=== PATIENT | male | born 1970 | race African-American/Black ===

== ENCOUNTER 2016-07-13 16:50 | Inpatient (IN) ==
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
[2016-07-13] MEDS ORDERED: KETOROLAC 60 MG/2 ML VIAL IM ONE (17:54)
[2016-07-13] MEDS ORDERED: KETOROLAC 30 MG/1 ML VIAL IM STA (17:59)
[2016-07-13] MEDS ORDERED: HYDROmorphone 2 MG/1 ML VIAL IM STA (18:04)
[2016-07-13] MEDS ORDERED: PROMETHAZINE 25 MG/1 ML VIAL IM STA (18:05)
[2016-07-13] MEDS ORDERED: PROMETHAZINE 25 MG/1 ML VIAL ONE (18:06)
[2016-07-13] MEDS ORDERED: HYDROmorphone 2 MG/1 ML VIAL ONE (18:06)
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
[2016-07-13] MEDS ORDERED: MAGNESIUM HYDROXIDE SUSP 30 ML UDCUP PO PRN (18:27)
[2016-07-13 18:42] LABS: Basophils % 0.1 % (0.0-0.8); Hematocrit 37.5 VOL% (42.0-52.0); Hemoglobin 12.3 GM/DL (14.0-18.0); Immature Granulocytes % 0.2 %; Immature Granulocytes Absolute 0.02 #; Lymphocytes # 1.2 10*3/uL (1.4-4.0); Lymphocytes % 9.3 % (21.2-54.2); Mean Corpuscular HGB Conc 32.8 GM/DL (32-36); Mean Corpuscular Hemoglobin 27 PG (27-34); Mean Corpuscular Volume 81.7 FL (87-102); Mean Platelet Volume 10.9 FL (9.6-12.0); Monocytes # 0.6 10*3/uL (0.11-0.8); Monocytes % 4.7 % (1.7-12.7); Neutrophils # 10.8 10*3/uL (1.4-7.4); Neutrophils % 85.7 % (38.7-73.9); Platelet Count 213 10*3/uL (130-400); Red Blood Count 4.59 10*6/uL (3.8-5.5); Red Cell Distribution Width 16.5 % (9.3-17.3); White Blood Count 12.5 10*3/uL (4.5-13.71)
--- NOTE | 2016-07-13 18:55 | EKG Report ---
Stationary ECG Study [facility] Test Date: 07/13/2016 6:53:11 PM Pat Name: ABNER VEGA Department: Room: 320 Gender: M Food Service Attendant: : 1970 Requested by: Darío Thorpe Order Number: [id number] Reading MD: MAXINE DE LA CRUZ Intervals [place] Rate: 59 P: 39 WA: 195 QRS: 1 QRSD: 113 T: 53 QT: 402 QTc: 400 Interpretive Statements SINUS RHYTHM VOLTAGE CRITERIA FOR LVH Electronically Signed On 07-15-16 07:45:39 [employer] by MAXINE DE LA CRUZ [email or web address]
[2016-07-13 19:03] LABS: Alanine Aminotransferase 21 U/L (16-61); Albumin 3.8 G/DL (3.4-5.0); Alkaline Phosphatase 69 U/L (45-117); Aspartate Amino Transferase 19 U/L (0-37); Bilirubin,Total < 0.39 MG/DL (0.2-1.0); Blood Urea Nitrogen 15 MG/DL (7-18); Calcium 8.3 MG/DL (8.5-10.1); Glucose 131 MG/DL (74-106); Osmolality,Calculated 288.8 MOS/KG (273-304); Potassium 3.6 MMOL/L (3.5-5.1); Sodium 144 MMOL/L (136-145); Total Protein 7.4 G/DL (6.4-8.3)
--- NOTE | 2016-07-13 19:37 | XRay Report ---
Exam: XR chest 1V portable Date: 07/13/2016 6:26 PM Indication: Respiratory preoperative evaluation Comparison: 12/02/2012 Technical:AP portable Findings: Mild cardiomegaly present. Mild interstitial thickening without defined infiltrate or effusion. Mediastinal and bony structures are intact Impression: 1. Cardiomegaly without decompensation. PROCEDURE INTERPRETED AT [facility] DEPARTMENT OF RADIOLOGY Final Report Signed by: Dr. Norman Cummings
--- NOTE | 2016-07-13 19:46 | CT Report ---
Exam: CT knee RT wo con Date: 07/13/2016 6:26 PM Comparison: None Indication: Tibial plateau fracture Total DLP: 455.1 mGy*cm Technical: Axial sagittal coronal imaging obtained without contrast. Dose reduction was performed with decreasing kv and mA and automated exposure Findings: Examination reveals a fracture through the intercondylar eminence extending laterally with some comminution and a lateral Segond fracture present. Joint effusion hemarthrosis is present. The exam reveals fracture of the fibula with posterior positioning distal fracture fragment also noted. Small area of loose body along the intercondylar remnant within the joint space. The largest butterfly fragment of the lateral tibial plateau is displaced posteriorly and measures 6.5 cm in approximately 4.2 cm. Distal femur is intact. The medial tibia is unremarkable. Patella is intact. Impression: 1. Comminuted spiral lateral tibial plateau fracture extending to the intercondylar eminence with lateral Segond and fracture also present the. 2. Nondisplaced fracture of the fibula present with transverse fracture component. 3. Large joint effusion hemarthrosis. PROCEDURE INTERPRETED AT [facility] DEPARTMENT OF RADIOLOGY Final Report Signed by: Dr. Norman Cummings
[2016-07-13] MEDS ORDERED: ENOXAPARIN 40 MG/0.4 ML SYRINGE SUBCUT SCH (21:00)
[2016-07-14] MEDS: HYDROmorphone 2 MG/1 ML VIAL IV PRN ×6 (03:10→23:24)
[2016-07-14] MEDS ORDERED: diphenhydrAMINE CAP 25 MG CAPSULE PO PRN (08:18)
[2016-07-14] MEDS ORDERED: TEMAZEPAM 15 MG CAPSULE PO PRN (08:18)
--- NOTE | 2016-07-14 09:07 | Orthopedic History & Physical ---
History of Present Illness Chief complaint: right tibial plateau fracture History of present illness: Mr. Gil is a 46 year old male See dictated reports Home Medications Medication Instructions Recorded Confirmed Type No Known Home Medications [No 07/13/16 07/13/16 History Known Home Medications] Allergies Allergy/AdvReac Type Severity Reaction Status Date / Time Penicillins Allergy Unknown/Unable Verified 07/13/16 17:02 to obtain Medical,Surgical,& Family Hx - Social History Smoking Status: Never smoker Frequency of Alcohol Use: None Type of Drug Use: None Exam - Constitutional Vitals: Period Temp Pulse Resp BP Sys/Cadroza Pulse Ox Last 24 Hr 98.2 F-99.8 F 60-63 12-20 162-180/87-100 96-100 Results - Labs CBC & BMP: 07/13/16 18:27 07/13/16 18:27
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
[2016-07-14] MEDS ORDERED: hydrALAZINE 20 MG/1 ML VIAL IV PRN (13:43)
[2016-07-14] MEDS ORDERED: LABETALOL 20 MG/4 ML SYRINGE IV PRN (13:47)
[2016-07-14] MEDS: amLODIPine 10 MG TABLET PO SCH (14:28)
[2016-07-15] MEDS: HYDROmorphone 2 MG/1 ML VIAL IV PRN ×5 (04:06→09:40)
[2016-07-15] MEDS ORDERED: DIAZEPAM 5 MG TABLET PO ONE (06:00)
[2016-07-15] MEDS ORDERED: FAMOTIDINE 20 MG/2 ML VIAL IV ONE (06:00)
[2016-07-15] MEDS: LACTATED RINGERS 1,000 ML IV SCH ×2 (06:22→08:46)
[2016-07-15] MEDS: amLODIPine 10 MG TABLET PO SCH ×2 (06:23→11:11)
[2016-07-15] MEDS ORDERED: GENTAMICIN 80 MG/2 ML VIAL ONE (06:58)
[2016-07-15] MEDS ORDERED: CLINDAMYCIN INJ 900 MG in PREMIX 1 EACH IV ONE (07:30)
[2016-07-15] MEDS ORDERED: PROPOFOL 200 MG/20 ML VIAL IV ONE (09:21)
[2016-07-15] MEDS ORDERED: ONDANSETRON 4 MG/2 ML VIAL ONE ×2 (09:21→09:22)
[2016-07-15] MEDS ORDERED: SEVOFLURANE 1 UNIT/15 MINUTE INH ONE (09:21)
[2016-07-15] MEDS ORDERED: GLYCOPYRROLATE 0.4 MG/2 ML VIAL ONE (09:21)
[2016-07-15] MEDS ORDERED: MIDAZOLAM 2 MG/2 ML VIAL ONE (09:21)
[2016-07-15] MEDS ORDERED: fentaNYL 100 MCG/2 ML VIAL ONE (09:21)
[2016-07-15] MEDS ORDERED: LACTATED RINGERS 1,000 ML IV ONE (09:22)
[2016-07-15] MEDS ORDERED: ROCURONIUM 100 MG/10 ML VIAL IV ONE (09:22)
[2016-07-15] MEDS ORDERED: ACETAMINOPHEN 1,000 MG/100 ML VIAL IV ONE (09:22)
[2016-07-15] MEDS ORDERED: NEOSTIGMINE 10 MG/10 ML VIAL ONE (09:22)
[2016-07-15] MEDS ORDERED: HYDROmorphone 2 MG/1 ML VIAL ONE (09:22)
--- NOTE | 2016-07-15 09:24 | Operative Note ---
Date of procedure: 07/15/16 (see dictated reports) Surgeon / Physician: Jose Prince Jr. Results - Labs CBC & BMP: 07/13/16 18:27 07/13/16 18:27 Discharge Plan - Discharge Medications No Action No Known Home Medications [No Known Home Medications] - Follow Up or Referral - Forms/Instructions
[2016-07-15] MEDS ORDERED: ONDANSETRON 4 MG/2 ML VIAL IV PRN (09:36)
[2016-07-15] MEDS ORDERED: BISACODYL 10 MG SUPP RECTAL PRN (09:54)
[2016-07-15] MEDS ORDERED: LACTULOSE 20 GM/30 ML UDCUP PO PRN (09:54)
[2016-07-15] MEDS ORDERED: HYDROmorphone PCA 30 MG/30 ML SYRINGE IV SCH (10:00)
[2016-07-15] MEDS ORDERED: LABETALOL 20 MG/4 ML SYRINGE IV ONE (10:05)
--- NOTE | 2016-07-15 10:14 | Anesthesia ---
Anesthesia Post OP - Post Ansesthetic Evaluation Patient seen in post op: Yes Resp: within normal limits CV: within normal limits Mental: within normal limits Temp: within normal limits Tkal-[id number]: within normal limits Nausea and Vomiting: within normal limits Pain: within normal limits
[2016-07-15] MEDS ORDERED: HYDROmorphone PCA 30 MG/30 ML SYRINGE IV ONE (10:19)
[2016-07-15] MEDS: PROMETHAZINE 25 MG/1 ML VIAL IM PRN (11:20)
--- NOTE | 2016-07-15 11:27 | Hospitalist Progress Note ---
Assessment and Plan (1) Fracture, fibula, proximal Status: Acute Assessment and plan: per primary team, s/p Sx Current Visit: Yes (2) Tibial plateau fracture Status: Acute Assessment and plan: per primary team Current Visit: Yes (3) Uncontrolled hypertension Status: Acute Assessment and plan: improving but still elevated. Will add chlorthalidone to amlodipine and c/w prn anti-HTN meds IV. optimal results in process. and pt counseled on nonadherence.Also pain on occasions might add to random elevation of BP so pain control will also help Current Visit: Yes (4) Microcytic anemia Status: Acute Assessment and plan: Hb 12.1. Current Visit: Yes Hospitalist: Subjective Interval history: Patient come back from surgery earlier this morning. Complaining of some pain and right lower extremity improving with pain medication. Patient denies chest pain or SOB or nausea or vomiting or palpitation or blurred vision or numbness. Exam - Constitutional Vitals: Period Temp Pulse Resp BP Sys/Cardoza Pulse Ox Last 24 Hr 97.4 F-98.9 F 58-92 12-23 158-194/90-118 96-100 Exam: General: A and O 3, NAD Neck: No JVD, supple Heart: S1-S2 present, RRR Lungs: CTA B, no wheezing Abdomen soft nontender Skin dry and warm Ext: HEENT: PERRL Results - Labs CBC & BMP: 07/13/16 18:27 07/13/16 18:27
[2016-07-15] MEDS: CHLORTHALIDONE 25 MG TABLET PO SCH (12:27)
[2016-07-15 12:33] LABS: Basophils % 0.2 % (0.0-0.8); Eosinophils % 0.1 % (0.00-10.9); Hematocrit 36.6 VOL% (42.0-52.0); Immature Granulocytes % 0.5 %; Immature Granulocytes Absolute 0.07 #; Lymphocytes # 1.6 10*3/uL (1.4-4.0); Lymphocytes % 12.4 % (21.2-54.2); Mean Corpuscular HGB Conc 32.8 GM/DL (32-36); Mean Corpuscular Hemoglobin 26 PG (27-34); Mean Corpuscular Volume 80.4 FL (87-102); Mean Platelet Volume 10.8 FL (9.6-12.0); Monocytes # 0.8 10*3/uL (0.11-0.8); Monocytes % 6.5 % (1.7-12.7); Neutrophils # 10.3 10*3/uL (1.4-7.4); Neutrophils % 80.3 % (38.7-73.9); Platelet Count 213 10*3/uL (130-400); Red Blood Count 4.55 10*6/uL (3.8-5.5); Red Cell Distribution Width 16.3 % (9.3-17.3); White Blood Count 12.8 10*3/uL (4.5-13.71)
[2016-07-15 12:58] LABS: Band Neutrophils 3 % (0-10); Calcium 8.7 MG/DL (8.5-10.1); Hypochromasia 1+; Lymphocytes 11 % (20-55); Osmolality,Calculated 276.7 MOS/KG (273-304); Ovalocytes Slight; Platelet Estimate Adequate; Potassium 3.2 MMOL/L (3.5-5.1); Segmented Neutrophils 80 % (50-85); Total Cells Counted 100
--- NOTE | 2016-07-15 13:19 | XRay Report ---
XR knee 3V RT Indication: ORIF right tibial plateau fracture. Fluoroscopy right knee: Fluoroscopy time 29 seconds. Plate and screw fixation of a 2 plateau fracture has been performed. Alignment is anatomic. Close reduction of fibular fracture noted as well, also in anatomic alignment. Tibial plateau shows no significant depressed fracture fragments. Impression: Anatomic alignment following ORIF tibial plateau fracture. PROCEDURE INTERPRETED AT [facility] DEPARTMENT OF RADIOLOGY Final Report Signed by: Awais Horne M.D.
[2016-07-15] MEDS: ONDANSETRON 4 MG/2 ML VIAL IV PRN (15:59)
[2016-07-15] MEDS: CLINDAMYCIN INJ 900 MG in PREMIX 1 EACH IV SCH ×2 (16:11→23:40)
--- NOTE | 2016-07-15 17:03 | Urology Consultation ---
History of Present Illness - Data of Consult Consult date: 07/15/16 - Consult Narrative History of present illness: Mr. Gil is a 46 year old male This 46-year-old black male is seen in consultation with Dr. Prince because of urinary symptoms that started after surgery this morning. The patient complains of frequency and voiding small amounts. He denies any difficulty voiding difficulty voiding prior to admission and no past history of any serious urological problems. On physical examination he has tenderness and questionable fullness in the suprapubic area and I suspect that this represents urinary retention. I am going get a bladder scan and if it shows an elevated residual urine put a Fontenot catheter and start him on Flomax CC: Jose Prince Jr., MD - Home Medications and Allergies Home Medications: Home Medications Medication Instructions Recorded Confirmed Type No Known Home Medications [No 07/13/16 07/13/16 History Known Home Medications] Allergies/Adverse Reactions: Allergies Allergy/AdvReac Type Severity Reaction Status Date / Time Penicillins Allergy Unknown/Unable Verified 07/13/16 17:02 to obtain Exam - Constitutional Vitals: Period Temp Pulse Resp BP Sys/Cardoza Pulse Ox Last 24 Hr 97.4 F-98.9 F 50-98 12- 148-194/75-118 96-100 Results - Labs CBC & BMP: 07/15/16 11:55 07/15/16 11:55
[2016-07-15 17:48] LABS: Apearance,Urine CLEAR (Clear); Bilirubin,Urine Negative (Negative); Blood, Urine Large mg/dL (Negative); Glucose,Urine (UA) 50 mg/dL (Negative); Ketones,Urine Negative (Negative); Nitrite,Urine Negative (Negative); Protein,Urine Negative; RBC,Urine 9 /HPF (0-4); Squamous Epithelial Cell,Urine Occasional /HPF (0-10); Urine Color Straw (Yellow); Urine Specific Gravity 1.005 (1.001-1.035); Urine Urobilinogen < 2.0 EU/DL (0.2-1.0); WBC,Urine 1 /HPF (0-6)
[2016-07-15] MEDS: TAMSULOSIN 0.4 MG CAPSULE PO SCH (22:29)
--- NOTE | 2016-07-16 07:47 | Urology Progress Note ---
Urology - PN: Subj Interval history: The patient was in urinary retention postop. He had 650 mL residual when catheterized. He is now on Flomax. We'll give him a trial of voiding today Exam - Constitutional Vitals: Period Temp Pulse Resp BP Sys/Cardoza Pulse Ox Last 24 Hr 97.4 F-98.9 F 50-98 12- 140-194/75-118 96-100 Results - Labs CBC & BMP: 07/15/16 11:55 07/15/16 11:55
[2016-07-16] MEDS: CHLORTHALIDONE 25 MG TABLET PO SCH (09:20)
[2016-07-16] MEDS: amLODIPine 10 MG TABLET PO SCH (09:20)
[2016-07-16] MEDS: TAMSULOSIN 0.4 MG CAPSULE PO SCH ×2 (09:20→20:57)
[2016-07-16] MEDS: CLINDAMYCIN INJ 900 MG in PREMIX 1 EACH IV SCH (09:22)
--- NOTE | 2016-07-16 10:48 | Orthopedic Progress Note ---
Orthopedics - Subjective Interval history: Postop morning #1 difficulty getting up first time got dizzy/ orthostatic. H&H is stable and well above 30. I believe it's a combination of being in bed also the antihypertensive medicines that he has been given. His mom is present she seems somewhat upset about the fact that he may not qualify for rehabilitation.i have expectations that he will start to mobilize on crutches or a walker and be able to mobilize about his own home in a nonweightbearing fashion. clearly is not ready to go home as of yet supportive care DC [employer] Exam - Constitutional Vitals: Period Temp Pulse Resp BP Sys/Cardoza Pulse Ox Last 24 Hr 98.2 F-98.9 F 50-98 16-20 140-175/75-110 96-100 Results - Labs CBC & BMP: 07/15/16 11:55 07/15/16 11:55
[2016-07-16 12:47] LABS: Basophils % 0.1 % (0.0-0.8); Eosinophils % 0.2 % (0.00-10.9); Hematocrit 37.8 VOL% (42.0-52.0); Hemoglobin 12.5 GM/DL (14.0-18.0); Immature Granulocytes % 0.2 %; Immature Granulocytes Absolute 0.02 #; Lymphocytes # 1.7 10*3/uL (1.4-4.0); Lymphocytes % 17.9 % (21.2-54.2); Mean Corpuscular HGB Conc 33.1 GM/DL (32-36); Mean Corpuscular Hemoglobin 26 PG (27-34); Mean Corpuscular Volume 79.6 FL (87-102); Mean Platelet Volume 11.2 FL (9.6-12.0); Monocytes # 0.7 10*3/uL (0.11-0.8); Neutrophils # 7.3 10*3/uL (1.4-7.4); Neutrophils % 74.6 % (38.7-73.9); Platelet Count 226 10*3/uL (130-400); Red Blood Count 4.75 10*6/uL (3.8-5.5); Red Cell Distribution Width 15.4 % (9.3-17.3); White Blood Count 9.7 10*3/uL (4.5-13.71)
[2016-07-16 13:15] LABS: Calcium 9.1 MG/DL (8.5-10.1); Osmolality,Calculated 274.8 MOS/KG (273-304); Potassium 2.8 MMOL/L (3.5-5.1)
[2016-07-16] MEDS: PROMETHAZINE 25 MG/1 ML VIAL IM PRN (14:59)
--- NOTE | 2016-07-16 15:59 | Hospitalist Progress Note ---
Assessment and Plan (1) Fracture, fibula, proximal Status: Acute Assessment and plan: per primary team, s/p Sx Current Visit: Yes (2) Tibial plateau fracture Status: Acute Assessment and plan: per primary team Current Visit: Yes (3) Uncontrolled hypertension Status: Chronic Assessment and plan: improving. Patient was a little bit lightheaded shortly ago, will check the orthostatic vital signs and check med doses. Current Visit: Yes (4) Microcytic anemia Status: Acute Assessment and plan: Hb 12.1. Current Visit: Yes (5) Postoperative urinary retention Status: Acute Assessment and plan: per urologist, voiding trial Current Visit: Yes Hospitalist: Subjective Interval history: Nursing reported patient was lightheaded when he attempted to sit up. Blood pressure was 150's/90's and border line tachycardic. Patient denies chest pain or SOB or nausea or vomiting or abdominal pain or blurred vision or fever or chills. Exam - Constitutional Vitals: Period Temp Pulse Resp BP Sys/Cardoza Pulse Ox Last 24 Hr 98.2 F-98.9 F 73-143 18-20 127-170/79-109 96-99 Exam: General: A and O 3, NAD Neck: No JVD, supple Heart: S1-S2 present, RRR Lungs: CTA B, no wheezing Abdomen soft nontender Skin dry and warm Ext: HEENT: PERRL Results - Labs CBC & BMP: 07/16/16 12:21 07/16/16 12:21
[2016-07-17] MEDS: HYDROmorphone 2 MG/1 ML VIAL IV PRN (03:05)
[2016-07-17] MEDS: ONDANSETRON 4 MG/2 ML VIAL IV PRN (05:40)
--- NOTE | 2016-07-17 07:50 | Urology Progress Note ---
Urology - PN: Subj Interval history: The patient was not catheterized yesterday. We will recheck his residual with a bladder scan Exam - Constitutional Vitals: Period Temp Pulse Resp BP Sys/Cardoza Pulse Ox Last 24 Hr 98.6 F-99.3 F 83-143 18-20 121-163/63-104 98-100 Results - Labs CBC & BMP: 07/16/16 12:21 07/16/16 12:21
[2016-07-17] MEDS: TAMSULOSIN 0.4 MG CAPSULE PO SCH ×2 (09:22→21:07)
[2016-07-17] MEDS: CHLORTHALIDONE 25 MG TABLET PO SCH (09:22)
[2016-07-17] MEDS: amLODIPine 10 MG TABLET PO SCH (09:22)
--- NOTE | 2016-07-17 16:11 | Orthopedic Progress Note ---
Orthopedics - Subjective Interval history: Did well with therapy today dressing dry discussed has a good day mobilizing no further orthostatic changes likely home tomorrow p.m. Exam - Constitutional Vitals: Period Temp Pulse Resp BP Sys/Cardoza Pulse Ox Last 24 Hr 99.0 F-99.2 F 100-107 18-20 121-128/66-80 98-98 Results - Labs CBC & BMP: 07/16/16 12:21 07/16/16 12:21
[2016-07-17] MEDS ORDERED: POTASSIUM CHLORIDE 20 MEQ TABLET PO ONE (17:30)
--- NOTE | 2016-07-17 17:30 | Hospitalist Progress Note ---
Assessment and Plan (1) Fracture, fibula, proximal Status: Acute Assessment and plan: s/p surgery, ortho is following Current Visit: Yes (2) Tibial plateau fracture Status: Acute Assessment and plan: ortho is following Current Visit: Yes (3) Uncontrolled hypertension Status: Chronic Assessment and plan: improving Current Visit: Yes (4) Hypokalemia Status: Acute Assessment and plan: will replete, get mg level Current Visit: Yes (5) Microcytic anemia Status: Acute Assessment and plan: will give some fe tablets Current Visit: Yes (6) Dizziness Status: Acute Assessment and plan: will get CT head, orthostatics and give meclizine prn Current Visit: Yes Hospitalist: Subjective Interval history: Patient seen. He complains of dizziness. Exam - Constitutional Vitals: Period Temp Pulse Resp BP Sys/Cardoza Pulse Ox Last 24 Hr 98.7 F-99.2 F 94-110 18-20 121-162/66-94 98-100 General appearance: no acute distress - Head Head exam: Present: normal inspection - Eye Eye exam: Present: EOMI - ENT ENT exam: Present: normal exam - Respiratory Respiratory exam: Present: clear to auscultation bilaterally - Cardiovascular Cardiovascular exam: Present: regular rate and rhythm - GI/Abdominal GI/Abdominal exam: Present: normal bowel sounds - Extremities Exam Extremities exam: Present: normal inspection Results - Labs CBC & BMP: 07/16/16 12:21 07/16/16 12:21 Lab Results: I have reviewed the past 24 hour labs
[2016-07-17] MEDS ORDERED: MECLIZINE 12.5 MG TABLET PO PRN (17:33)
--- NOTE | 2016-07-17 18:54 | CT Report ---
Exam: CT scan of brain without contrast Date: 07/17/2016 Indication: Dizziness Comparison: 02/15/08 Patient's classification: Inpatient Technical: Images were obtained from the skull base to the vertex without the use of intravenous contrast. Dose reduction was performed with decreasing kv and mA and automated exposure Total DLP: 1073.1 mGy*cm Findings: The brainstem, cerebellum and cerebral hemispheres are intact. The paranasal sinuses are unremarkable. Mastoids are intact. The ventricles are located in normal position without midline shift or mass effect. The globes and sella are intact. The calvarium is unremarkable. Impression: 1. No acute hemorrhage infarction or mass effect PROCEDURE INTERPRETED AT [facility] DEPARTMENT OF RADIOLOGY Final Report Signed by: Dr. Norman Cummings
[2016-07-18] MEDS: HYDROmorphone 2 MG/1 ML VIAL IV PRN ×2 (00:27→06:34)
[2016-07-18 05:22] LABS: Basophils % 0.3 % (0.0-0.8); Eosinophils # 0.1 10*3/uL (0.0-0.87); Eosinophils % 1.4 % (0.00-10.9); Hematocrit 35.6 VOL% (42.0-52.0); Hemoglobin 11.7 GM/DL (14.0-18.0); Immature Granulocytes % 0.3 %; Immature Granulocytes Absolute 0.02 #; Lymphocytes # 2.2 10*3/uL (1.4-4.0); Lymphocytes % 29.4 % (21.2-54.2); Mean Corpuscular HGB Conc 32.9 GM/DL (32-36); Mean Corpuscular Hemoglobin 26 PG (27-34); Mean Corpuscular Volume 79.5 FL (87-102); Mean Platelet Volume 10.7 FL (9.6-12.0); Monocytes # 0.8 10*3/uL (0.11-0.8); Monocytes % 10.5 % (1.7-12.7); Neutrophils # 4.4 10*3/uL (1.4-7.4); Neutrophils % 58.1 % (38.7-73.9); Platelet Count 262 10*3/uL (130-400); Red Blood Count 4.48 10*6/uL (3.8-5.5); Red Cell Distribution Width 14.9 % (9.3-17.3); White Blood Count 7.6 10*3/uL (4.5-13.71)
[2016-07-18 06:04] LABS: Calcium 9.3 MG/DL (8.5-10.1); Osmolality,Calculated 279.5 MOS/KG (273-304); Potassium 3.5 MMOL/L (3.5-5.1)
[2016-07-18] MEDS: ONDANSETRON 4 MG/2 ML VIAL IV PRN (06:34)
--- NOTE | 2016-07-18 07:43 | Orthopedic Progress Note ---
Orthopedics - Subjective Interval history: Comfortable able to do a straight leg raise work on bowel movement today continue with PT expect home this this afternoon instructed we'll follow up in a week Exam - Constitutional Vitals: Period Temp Pulse Resp BP Sys/Cardoza Pulse Ox Last 24 Hr 97.8 F-99.0 F 82-110 18-20 115-162/75-94 97-100 Results - Labs CBC & BMP: 07/18/16 05:01 07/18/16 05:01
--- NOTE | 2016-07-18 07:46 | Discharge Summary ---
Diagnosis - Discharge Diagnosis (1) Tibial plateau fracture, right Status: Acute (2) Urinary retention Status: Acute (3) Hypertension Status: Acute Discharge Plan - Discharge Data Disposition: Disch To Home/Self Care Condition at Discharge: Stable Discharge Diet: advance to your usual diet Activity: as per physical therapy (walker nonweightbearing on right), increase activity as tolerated Hygiene: may shower, keep area(s) dry Weight Bearing at Discharge: non-weight bearing - Discharge Medications New HYDROcodone/ACETAMIN 7.5-325 [[place] 7.5-325] 1 tablet PO Q4H PRN #30 tablet PRN Reason: Pain Moderate (4-7) - Follow Up or Referral - Forms/Instructions Additional Discharge Instructions: Discharge to home discharge medications [place] when necessary #30 no refills. Aspirin once a day diet as tolerated ambulating with a walker nonweightbearing on the right side knee immobilizer can be removed for bathing hygiene purposes follow-up 1 week for staple removal Exam - Constitutional Vitals: Period Temp Pulse Resp BP Sys/[place] Pulse Ox Last 24 Hr 97.8 F-99.0 F 82-110 18-20 115-162/75-94 97-100 Discharge Results Labs on day of discharge: Labs from last 24 hours 07/18/16 07/18/16 05:01 05:01 WBC 7.6 RBC 4.48 Hgb 11.7 L Hct 35.6 L MCV 79.5 L MCH 26 L MCHC 32.9 RDW 14.9 Plt Count 262 MPV 10.7 Neut % (Auto) 58.1 Lymph % (Auto) 29.4 [place] % (Auto) 10.5 Eos % (Auto) 1.4 Baso % (Auto) 0.3 Neut # (Auto) 4.4 Lymph # (Auto) 2.2 [place] # (Auto) 0.8 Eos # (Auto) 0.1 Baso # (Auto) 0.0 Immature Gran % 0.3 Nucleated RBC % 0.0 Immature Gran # 0.02 Nucleated RBCs # 0.00 Sodium 139 Potassium 3.5 Chloride 96 L Carbon Dioxide 31 Anion Gap 15.5 H BUN 17 Creatinine 1.10 GFR Calculation 127 BUN/Creatinine Ratio 15.00 Glucose 114 H Calculated Osmolality 279.5 Calcium 9.3 DS: Provider Date of admission: 07/13/16 18:28 Primary care physician: . No PCP Attending physician on admission: Jose Prince Jr., MD Consults: 07/14/16 11:27 Consult to Physician [CONS] Routine Comment: Consulting Provider: Consulting Provider Notified: Yes When should Consulting Provider be notified: Now Consult to Specialist Group: Hospitalist When should Consulting Provider be notified: Now Person Notified: dr naqvi Date Notified: 07/14/16 Time Notified: 11:40 Consult Notification Comment: dr cortez to see 07/15/16 09:54 Consult to Occupational Therapy [CONS] Routine Reason for Occupational Therapy: Evaluate and Treat Consult to Physical Therapy [CONS] Routine Reason for Physical Therapy: Evaluate and Treat Consult Comment: nonweightbearing on right nonweight 07/15/16 09:56 Consult to Case Mgmt/Social Srvs [CONS] Routine Reason for Case Mgmt/Social Srvs: Home Health Rehab Equipment 07/15/16 10:01 Consult to Pharmacy [CONS] Routine Reason for Pharmacy Consult: Adjust Meds Renal Funct 07/15/16 15:16 Consult to Physician [CONS] Routine Comment: frequent urination/pain Consulting Provider: Navin Oliver Consulting Provider Notified: Yes When should Consulting Provider be notified: Now Consult to Specialist Group: Urology Person Notified: christiano robertson Date Notified: 07/15/16 Time Notified: 15:22 Discharging clinician: Jose Prince Jr., MD
--- NOTE | 2016-07-18 07:50 | Urology Progress Note ---
Urology - PN: Subj Interval history: The patient did not require catheterization yesterday. He will take Flomax at home as needed Exam - Constitutional Vitals: Period Temp Pulse Resp BP Sys/[place] Pulse Ox Last 24 Hr 97.8 F-99.0 F 82-110 18-20 115-162/75-94 97-100 Results - Labs CBC & BMP: 07/18/16 05:01 07/18/16 05:01
[2016-07-18] MEDS: amLODIPine 10 MG TABLET PO SCH (08:54)
[2016-07-18] MEDS: TAMSULOSIN 0.4 MG CAPSULE PO SCH (08:54)
[2016-07-18] MEDS: CHLORTHALIDONE 25 MG TABLET PO SCH (08:54)
--- NOTE | 2016-07-18 10:42 | Hospitalist Progress Note ---
Assessment and Plan (1) Fracture, fibula, proximal Status: Acute Assessment and plan: s/p surgery, ortho is following Current Visit: Yes (2) Tibial plateau fracture Status: Acute Assessment and plan: ortho is following Current Visit: Yes (3) Uncontrolled hypertension Status: Chronic Assessment and plan: improving, patient can be dcd on current regime Current Visit: Yes (4) Hypokalemia Status: Acute Assessment and plan: improved Current Visit: Yes (5) Microcytic anemia Status: Acute Assessment and plan: will give some fe tablets Current Visit: Yes (6) Dizziness Status: Acute Assessment and plan: CT head-negative,continue meclizine prn Current Visit: Yes Hospitalist: Subjective Interval history: patient seen, he was still dizzy and throwing up.CT showed no acute changes.Blood pressure was better controlled Exam - Constitutional Vitals: Period Temp Pulse Resp BP Sys/[place] Pulse Ox Last 24 Hr 97.8 F-98.7 F 82-110 18-20 115-141/75-94 97-99 General appearance: no acute distress - Head Head exam: Present: normal inspection - Eye Eye exam: Present: EOMI - Neck Neck exam: Present: normal inspection - Respiratory Respiratory exam: Present: clear to auscultation bilaterally - Cardiovascular Cardiovascular exam: Present: regular rate and rhythm - GI/Abdominal GI/Abdominal exam: Present: normal bowel sounds - Extremities Exam Extremities exam: Present: normal inspection Results - Labs CBC & BMP: 07/18/16 05:01 07/18/16 05:01 Lab Results: I have reviewed the past 24 hour labs Specialty Discharge - Follow Up or Referrals Follow up with: Jsoe Prince Jr., MD [Physician] - 07/25/16 1:15 pm
[2016-07-18] MEDS ORDERED: IRON (CARBONYL)/VIT C/B12/FA TABLET PO SCH (11:00)
[2016-07-18 13:34] VITALS: BP 136/85
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
== END 2016-07-18 13:12 | disposition home or self-care (01) | DRG 494 ==
LOC: N.ED 16:50 → N.EDINP 18:27 → N.3E 19:45
PROVIDERS: ADMIT Orthopaedic Surgery; ATTEND Orthopaedic Surgery